=== PATIENT | female | born 1990 | race Caucasian/White ===

== ENCOUNTER 2017-07-24 05:54 | Inpatient (IN) | payer MEDICAID ==
[~2017-07-24] VITALS: Ht 177.8 cm; Wt 77.1 kg
[2017-07-24] VITALS (48 sets, daily range): BP systolic 54–136; BP diastolic 33–93; PULSE 55–123; RESP 16–20; TEMP 97.8–99.1; O2SAT 100
[2017-07-24] MEDS ORDERED: Prenatal Vitamin PO (06:13)
[2017-07-24] MEDS ORDERED: NS 1000 ML IV PRN (06:15)
[2017-07-24] MEDS ORDERED: LACTATED RINGER'S 1000 ML IV SCH (06:15)
[2017-07-24] MEDS ORDERED: LACTATED RINGER'S 1000 ML BOLUS IV PRN (06:15)
[2017-07-24] MEDS ORDERED: NS 500 ML BOLUS IV PRN (06:15)
[2017-07-24] MEDS ORDERED: OXYTOCIN 30 UNITS/NS 500ML PREMIX IV PRN (06:15)
[2017-07-24] MEDS ORDERED: LIDOCAINE HCL 1% 50 ML VIAL INFIL PRN (06:30)
[2017-07-24] MEDS ORDERED: ONDANSETRON HCL 4 MG/2 ML VIAL IV PUSH PRN (06:30)
[2017-07-24] MEDS ORDERED: LIDOCAINE HCL 1% 50 ML VIAL I-DERMAL PRN (06:30)
[2017-07-24] MEDS ORDERED: CITRIC ACID-SODIUM CITRATE LIQ 30 ML UDC PO SCH (06:30)
[2017-07-24] MEDS ORDERED: MINERAL OIL 10 ML VIAL TOPICAL PRN (06:30)
[2017-07-24] MEDS ORDERED: OXYTOCIN 30 UNITS 500ML PREMIX IV ONE (06:30)
[2017-07-24 06:55] LABS: BASOPHIL # 0.1 TH/MM3 (0-0.2); BASOPHIL % 0.6 % (0.0-2.0); EOSINOPHIL # 0.1 TH/MM3 (0-0.4); HEMATOCRIT 38.9 % (35.0-46.0); HEMOGLOBIN 13.1 GM/DL (11.6-15.3); LYMPH % 17.4 % (9.0-44.0); LYMPHOCYTE # 2.1 TH/MM3 (1.0-4.8); MEAN CELL VOLUME 87.8 FL (80.0-100.0); MEAN CORPUSCULAR HEMOGLOBIN 29.6 PG (27.0-34.0); MEAN CORPUSCULAR HGB CONC 33.8 % (32.0-36.0); MEAN PLATELET VOLUME 9.4 FL (7.0-11.0); MONO % 7.4 % (0.0-8.0); MONOCYTE # 0.9 TH/MM3 (0-0.9); NEUT % 73.6 % (16.0-70.0); PLATELET COUNT 256 TH/MM3 (150-450); RED BLOOD COUNT 4.43 MIL/MM3 (4.00-5.30); RED CELL DISTRIBUTION WIDTH 13.4 % (11.6-17.2); WHITE BLOOD COUNT 12.2 TH/MM3 (4.0-11.0)
[2017-07-24 07:08] LABS: BILIRUBIN, URINE NEG (NEG); BLOOD, URINE NEG (NEG); GLUCOSE,URINE NEG (NEG); KETONE, URINE NEG (NEG); MUCUS URINE FEW /lpf (OCC); NITRITE,URINE NEG (NEG); PH, URINE 6.5 (5.0-8.5); SQUAMOUS EPITHELIAL CELL URINE 8 /hpf (0-5); URINE COLOR YELLOW (YELLW/STRAW); URINE LEUKOCYTE ESTERASE TRACE (NEG)
--- NOTE | 2017-07-24 08:41 | HHI.HP ---
HPI Chief Complaint iol at term Travel History International Travel<30 Days: No Contact w/Intl Traveler<30Days: No Known Affected Area: No History of Present Illness HPI 27 yo G1 with iup at 39w2d by first trimester u/s her for iol with favorable ferguson score. She has a 4 cm left anterior fibroid. She had foreign travel prior to and had neg zika testing. Good FM, Irreg ctx, no vb/lof. Weeks Gestation: 39 Para: 0 : 1 History Past Medical History Medical History: Denies Significant Hx Obstetric History Obstetric History G1 current Past Surgical History Narrative Surgical Removal of ingrown nail Coggon teeth extraction Family History Family History: Negative Social History Alcohol Use: No Tobacco Use: No Substance Abuse: No Allergies-Medications (Allergen,Severity, Reaction): Coded Allergies: vancomycin (Verified Allergy, Unknown, Hives, 07/24/17) Home Meds Reported Medications [ Vitamin] No Conflict Check, 1 TAB PO DAILY 07/24/17 Review of Systems General / Constitutional: No: Fever, Weight Gain, Chills, Other Eyes: No: Diploplia, Blurred Vision, Visual changes, Pain, Photophobia HENT: No: Headaches, Vertigo, Lightheadedness Cardiovascular: No: Irregular Rhythm, Chest Pain or Discomfort, Palpitations, Tachycardia, Syncope, Varicosities, Edema, Cyanosis Respiratory: No: Cough, Short of Breath, Other Gastrointestinal: No: Nausea, Vomiting, Diarrhea Genitourinary: No: Decreased Urinary Output, Oliguria Musculoskeletal: No: Limited ROM, Weakness, Cramping, Edema, Pain Skin: No Rash, No Itching, No Dryness, No Lumps, No Change in Pigmentation, No Change in Nails, No Alopecia, No Lesions Neurologic: No: Weakness, Dizziness, Syncope, Focal Abnormalities, Coordination Problem, Headache, Slurred Speech, Seizures Psychiatric: No: Depression, Suicidal Ideations, Homicidal Ideation Endocrine: No: Heat Intolerance, Cold Intolerance, Polydipsia, Polyuria, Other Physical Exam Vital Signs Date Time Temp Pulse Resp B/P (MAP) Pulse Ox O2 Delivery O2 Flow Rate FiO2 07/24/17 07:30 93 123/84 (97) 07/24/17 07:16 96 123/80 (94) 07/24/17 07:16 99.1 18 5/1/18 06:30 97.8 18 07/24/17 06:24 84 120/80 (93) Narrative GENERAL: Well-nourished, well-developed patient. SKIN: Warm and dry. HEAD: Normocephalic and atraumatic. EYES: No scleral icterus. No injection or drainage. ENT: No nasal drainage noted. Mucous membranes pink. Airway patent. NECK: Supple, trachea midline. No JVD. CARDIOVASCULAR: Regular rate and rhythm without murmurs, gallops, or rubs. RESPIRATORY: Breath sounds equal bilaterally. No accessory muscle use. ABDOMEN/GI: Abdomen soft, non-tender, bowel sounds present, no rebound, no guarding Gravid [id number] size GENITOURINARY: External Genitalia: intact and normal in appearance BUS glands: [-] Cervix:3/70/-2, Arom clear Presentation: ceph Membranes:arom Uterine Contractions: [-] FHT's: Category:I Decels: [-] EXTREMITIES: No cyanosis or edema. BACK: Nontender without obvious deformity. No CVA tenderness. NEUROLOGICAL: Awake and alert. Motor and sensory grossly within normal limits. Five out of 5 muscle strength in all muscle groups. Normal speech. Caprini VTE Risk Assessment Caprini VTE Risk Assessment: No/Low Risk (score <= 1) Caprini Risk Assessment Model Point Value = 1 Point Value = 2 Point Value = 3 Point Value = 5 Age 41-60 Minor surgery BMI > 25 kg/m2 Swollen legs Varicose veins or History of unexplained or recurrent spontaneous Oral contraceptives or hormone replacement Sepsis (< 1 month) Serious lung disease, including pneumonia (< 1 month) Abnormal pulmonary function Acute myocardial infarction Congestive heart failure (< 1 month) History of inflammatory bowel disease Medical patient at bed rest Age 61-74 Arthroscopic surgery Major open surgery (> 45 min) Laparoscopic surgery (> 45 min) Malignancy Confined to bed (> 72 hours) Immobilizing plaster cast Central venous access Age >= 75 History of VTE Family history of VTE Factor V Leiden Prothrombin [id number] Lupus anticoagulant Anticardiolipin antibodies Elevated serum homocysteine Heparin-induced thrombocytopenia Other congenital or acquired thrombophilia Stroke (< 1 month) Elective arthroplasty Hip, pelvis, or leg fracture Acute spinal cord injury (< 1 month) Prophylaxis Regimen Total Risk Factor Score Risk Level Prophylaxis Regimen 0-1 Low Early ambulation 2 Moderate Order ONE of the following: *Sequential Compression Device (SCD) *Heparin 5000 units SQ BID 3-4 Higher Order ONE of the following medications: *Heparin 5000 units SQ TID *Enoxaparin/Lovenox 40 mg SQ daily (WT < 150 kg, CrCl > 30 mL/min) *Enoxaparin/Lovenox 30 mg SQ daily (WT < 150 kg, CrCl > 10-29 mL/min) *Enoxaparin/Lovenox 30 mg SQ BID (WT < 150 kg, CrCl > 30 mL/min) AND/OR *Sequential Compression Device (SCD) 5 or more Highest Order ONE of the following medications: *Heparin 5000 units SQ TID (Preferred with Epidurals) *Enoxaparin/Lovenox 40 mg SQ daily (WT < 150 kg, CrCl > 30 mL/min) *Enoxaparin/Lovenox 30 mg SQ daily (WT < 150 kg, CrCl > 10-29 mL/min) *Enoxaparin/Lovenox 30 mg SQ BID (WT < 150 kg, CrCl > 30 mL/min) AND *Sequential Compression Device (SCD) Data Data Vital Signs Reviewed: Yes Orders Orders Lactated Ringer's 1000 Ml Inj (Lr 1000 M (07/24/17 06:15) Lactated Ringer's 1000 Ml Inj (Lr 1000 M (07/24/17 06:15) Sodium Chlorid 0.9% 500 Ml Inj (Ns 500 M (07/24/17 06:15) Sodium Chlor 0.9% 1000 Ml Inj (Ns 1000 M (07/24/17 06:15) Oxytocin 30 Units-500ml Premix (Pitocin (07/24/17 06:15) Lidocaine 1% Inj (50 Ml) (Xylocaine 1% I (07/24/17 06:30) Citric Acid-Sodium Citrate Liq (Bicitra (07/24/17 06:30) Ondansetron Inj (Zofran Inj) (07/24/17 06:30) Fentanyl Inj (Fentanyl Inj) (07/24/17 06:30) Fentanyl Inj (Fentanyl Inj) (07/24/17 06:30) Oxytocin 30 Units-500ml Premix (Pitocin (07/24/17 06:30) Lidocaine 1% Inj (50 Ml) (Xylocaine 1% I (07/24/17 06:30) Light Mineral Oil (Muri-Lube Oil) (07/24/17 06:30) ^ Non Stress Test (07/24/17 06:29) Response To Medication .Post New Med Administration, Reaction (07/24/17 06:29) ^ Discontinue Medication (07/24/17 06:29) Admit To Inpatient (07/24/17 ) Vital Signs (Adult) .Per protocol (07/24/17 06:30) Heart (07/24/17 06:30) Amnioinfusion (07/24/17 06:30) Urinary Catheter Management .ONCE (07/24/17 06:30) Complete Blood Count With Diff (07/24/17 06:30) Hold Clot (07/24/17 06:30) Abo/Rh Blood Type (07/24/17 06:30) Urinalysis - C+S If Indicated (07/24/17 06:30) Ob/Psych Drug Screen, Urine (07/24/17 06:30) Resp Oxygen Non Rebreathe Mask (07/24/17 ) ^ Epidural / Intrathecal Infus (07/24/17 06:30) Specimen To Be Collected PRN (07/24/17 06:30) Specimen To Be Collected PRN (07/24/17 06:30) Diet Clear Liquid (07/24/17 Breakfast) Group B Strep: Negative Labs Laboratory Tests Test 07/24/17 06:15 07/24/17 06:20 Urine Color YELLOW Urine Turbidity HAZY Urine pH 6.5 Urine Specific [place] 1.021 Urine Protein TRACE Urine Glucose (UA) NEG Urine Ketones NEG Urine Occult Blood NEG Urine Nitrite NEG Urine Bilirubin NEG Urine Urobilinogen LESS THAN 2.0 Urine Leukocyte Esterase TRACE Urine RBC 2 Urine WBC 1 Urine Squamous Epithelial Cells 8 Urine Mucus FEW Microscopic Urinalysis Comment CULT NOT INDICATED Urine Opiates Screen NEG Urine Barbiturates Screen NEG Urine Amphetamines Screen NEG Urine Benzodiazepines Screen NEG Urine Cocaine Screen NEG Urine Cannabinoids Screen NEG White Blood Count 12.2 Red Blood Count 4.43 Hemoglobin 13.1 Hematocrit 38.9 Mean Corpuscular Volume 87.8 Mean Corpuscular Hemoglobin 29.6 Mean Corpuscular Hemoglobin Concent 33.8 Red Cell Distribution Width 13.4 Platelet Count 256 Mean Platelet Volume 9.4 Neutrophils (%) (Auto) 73.6 Lymphocytes (%) (Auto) 17.4 Monocytes (%) (Auto) 7.4 Eosinophils (%) (Auto) 1.0 Basophils (%) (Auto) 0.6 Neutrophils # (Auto) 9.0 Lymphocytes # (Auto) 2.1 Monocytes # (Auto) 0.9 Eosinophils # (Auto) 0.1 Basophils # (Auto) 0.1 CBC Comment DIFF FINAL Differential Comment Assessment/Plan Problem List: (1) Fibroid, uterine ICD Codes: D25.9 - Leiomyoma of uterus, unspecified (2) Labor and delivery indication for care or intervention ICD Codes: O75.9 - Complication of labor and delivery, unspecified Assessment and Plan 27yo G1 with ip at 39w2d her for iol 1) IOL - AROM and pitocin. Epidural if desired. Anticipate 2) GBS neg 3) Left ant 4 cm fibroid- should not affect descent 4) Fetus- female, "One[place]" approx 7.5lb Discharge Planning PPD 2 Chantell Javier MD July 24, 2017 08:41
[2017-07-24] MEDS ORDERED: fentaNYL 2MCG-BUPIV 0.125% INJ 100 ML ONE (14:57)
[2017-07-24] MEDS ORDERED: ePHEDrine/NS 25 MG/5 ML SYRINGE ONE (14:57)
[2017-07-24] MEDS ORDERED: LIDOCAINE 2%/EPINEPHrine PF 1:200,000 20ML SDV ONE (14:59)
[2017-07-24] MEDS ORDERED: LIDOCAINE HCL 1% PF 30 ML VIAL ONE (15:00)
[2017-07-24] MEDS ORDERED: fentaNYL 2MCG-BUPIV 0.125% 100 ML EPIDURAL PRN (16:15)
[2017-07-24] MEDS ORDERED: NO SYSTEM NARCOTICS PRN (16:15)
[2017-07-24] MEDS ORDERED: ePHEDrine/NS 25 MG/5 ML SYRINGE IV PUSH PRN (16:15)
[2017-07-24] MEDS ORDERED: DO NOT ADMINISTER ANTICOAGULANTS PRN (16:15)
--- NOTE | 2017-07-24 20:01 | PD.OB.DELI ---
Weeks gestation: 39 Pt started active labor?: Yes Medical induction of labor?: No Artificial rupture of membrane: Yes Anesthesia: Epidural Episiotomy: None Vaginal Delivery: Normal Presentation: Occiput anterior Nuchal Cord: None Delayed cord clamping (45 sec): Yes Shoulder Dystocia: Suprapubic pressure given, Rosalie maneuver done, Other ( compound left arm. Anterior arm right arm. Head delivered, gentle downward traction with no descent, Rosalie and suprapubic emplyed, Delivery of posterior shoulder then anterior shoulder. Under 30 seconds.) Delivery date: July 24, 2017 Delivery time: 19:33 One Minute : 7 Five Minute : 9 Weight: 3700g Placenta: Spontaneous delivery, Intact, 3 vessel cord Laceration: Vaginal laceration (Bilateral labial laceration) Estimated blood loss: 400ml Additional Information small 1.5cm left vaginal hematoma, observed and non-expanding. Alessia-urethral edema, non-obstructing. Will need straight cath if unable to void. Ice pack to perineum. Chantell Javier MD July 24, 2017 20:01
[2017-07-24] MEDS ORDERED: ZOLPIDEM TARTRATE 5 MG TAB PO PRN (20:15)
[2017-07-24] MEDS ORDERED: ACETAMINOPHEN 325 MG TAB PO PRN (20:15)
[2017-07-24] MEDS ORDERED: OXYTOCIN 30 UNITS-500ML PREMIX 500 ML IV SCH (20:15)
[2017-07-24] MEDS ORDERED: ONDANSETRON ODT 4 MG TAB PO PRN (20:15)
[2017-07-24] MEDS ORDERED: SODIUM CHLORIDE 0.9% FLUSH 10 ML FLUSH IV FLUSH PRN (20:15)
[2017-07-24] MEDS ORDERED: BENZOCAINE 20% TOPICAL SPRAY 60 ML CAN TOPICAL PRN (20:15)
[2017-07-24] MEDS ORDERED: DOCUSATE SODIUM 50 MG/SENNA 8.6 MG TAB PO PRN (20:15)
[2017-07-24] MEDS ORDERED: IBUPROFEN 800 MG TAB PO PRN (20:15)
[2017-07-24] MEDS ORDERED: ALUMINUM/MAGNESIUM/SIMETH 30 ML CUP PO PRN (20:15)
[2017-07-24] MEDS ORDERED: SODIUM CHLORIDE 0.9% FLUSH 10 ML FLUSH IV FLUSH SCH (21:00)
[2017-07-24] MEDS: WITCH HAZEL 50%/GLYCERIN 12.5% 40 PAD JAR TOPICAL PRN (21:01)
[2017-07-25] MEDS ORDERED: IBUP-232 PO (07:18)
--- NOTE | 2017-07-25 07:18 | HHI.DCPOC ---
Discharge Care Plan Diagnosis: (1) Normal vaginal delivery (2) Fibroid, uterine Your Health Problems Are: Vaginal delivery Report Symptoms to Your Doctor -Temperature above 100.5 degrees -Redness, of incision or excessive or foul smelling drainage -Unusual pain or calf pain -Increased vaginal bleeding -Painful or difficulty urinating -Feelings of extreme sadness or anxiety after 2 weeks Goals to Promote Your Health * To prevent worsening of your condition and complications * To maintain your health at the optimal level Directions to Meet Your Goals Take your medications as prescribed Follow your dietary instruction Follow activity as directed Ensure plenty of rest for recovery Drink fluids for hydration Keep your appointments as scheduled Take your immunizations and boosters as scheduled If your symptoms worsen call your PCP, if no PCP go to Urgent Care Center or Emergency Room Smoking is Dangerous to Your Health. Avoid second hand smoke Call the 24-hour crisis hotline for domestic abuse at Lazaro Beal MD July 25, 2017 07:18
--- NOTE | 2017-07-25 08:21 | HHI.OB ---
Subjective Post Day: 1 Remarks Patient is doing well, no complaints, vaginal bleeding less than menses, pain controlled Objective Vitals/I&O Vital Signs Date Time Temp Pulse Resp B/P (MAP) Pulse Ox O2 Delivery O2 Flow Rate FiO2 07/24/17 21:35 98.1 97 18 103/65 (78) 07/24/17 20:45 18 07/24/17 20:45 102 122/63 (82) 07/24/17 20:28 16 07/24/17 20:16 102 107/66 (80) 07/24/17 20:13 18 07/24/17 20:00 96 119/69 (86) 07/24/17 19:59 98.5 18 07/24/17 19:45 100 117/56 (76) 07/24/17 18:45 98 114/65 (81) 07/24/17 17:30 75 109/71 (84) 07/24/17 17:16 73 102/60 (74) 07/24/17 17:00 71 106/59 (75) 07/24/17 16:58 20 07/24/17 16:30 77 97/54 (68) 07/24/17 16:25 80 18 07/24/17 16:20 77 07/24/17 16:15 77 108/58 (75) 07/24/17 16:15 69 07/24/17 16:10 74 07/24/17 16:05 89 07/24/17 16:00 79 07/24/17 16:00 95/71 (79) 07/24/17 16:00 87 07/24/17 15:50 75 07/24/17 15:45 107/62 (77) 100 07/24/17 15:45 81 07/24/17 15:43 78 108/66 (80) 07/24/17 15:40 114/77 (89) 100 07/24/17 15:40 90 07/24/17 15:38 72 110/62 (78) 07/24/17 15:35 109/61 (77) 100 07/24/17 15:35 78 07/24/17 15:30 82 07/24/17 15:30 107/62 (77) 100 07/24/17 15:25 113/65 (81) 100 07/24/17 15:25 97 5/1/18 15:20 118/70 (86) 100 07/24/17 15:20 95 07/24/17 15:15 118/69 (85) 100 07/24/17 15:15 91 07/24/17 15:10 90 136/93 (107) 07/24/17 15:00 85 119/77 (91) 07/24/17 14:07 98.2 07/24/17 14:01 82 122/70 (87) 07/24/17 13:30 73 114/72 (86) 07/24/17 13:00 69 106/67 (80) 07/24/17 12:00 83 118/73 (88) 07/24/17 11:40 101 115/88 (97) 07/24/17 11:31 55 54/33 (40) 07/24/17 11:00 86 113/71 (85) 07/24/17 10:30 84 118/67 (84) 07/24/17 10:00 94 110/77 (88) 07/24/17 10:00 99.1 07/24/17 09:03 123 Objective Remarks GENERAL: Well-nourished, well-developed patient. CARDIOVASCULAR: Regular rate and rhythm without murmurs, gallops, or rubs. RESPIRATORY: Breath sounds equal bilaterally. No accessory muscle use. ABDOMEN/GI: Abdomen soft, non-tender. Fundus: Firm, non-tender at umbilicus. GENITOURINARY: Light to moderate bleeding. EXTREMITIES: No cyanosis or edema, non-tender, without signs of DVT. Medications and IVs Current Medications Medications (Trade) Dose Ordered Sig/Mihir Route Start Time Stop Time Status Last Admin (NS Flush) 2 ml BID IV FLUSH 07/24/17 21:00 (NS Flush) 2 ml UNSCH PRN IV FLUSH 07/24/17 20:15 (Tylenol) 650 mg Q4H PRN PO 07/24/17 20:15 07/25/17 07:16 (Motrin) 800 mg Q8H PRN PO 07/24/17 20:15 (Americaine 20% Top Spr) 1 spray Q4H PRN TOPICAL 07/24/17 20:15 07/24/17 21:01 (Tucks Pads) 1 applic QID PRN TOPICAL 07/24/17 20:15 07/24/17 21:01 (Alessia-Colace) 2 tab Q12H PRN PO 07/24/17 20:15 (Ambien) 5 mg HS PRN PO 07/24/17 20:15 (M-M-R Ii Inj) 0.5 ml ONCE ONCE SQ 07/25/17 16:00 07/25/17 16:01 (Boostrix Inj) 0.5 ml ONCE ONCE IM 07/25/17 16:00 07/25/17 16:01 (Mag-Al Plus Susp Liq) 15 ml Q8H PRN PO 07/24/17 20:15 (Zofran Odt) 4 mg Q6H PRN PO 07/24/17 20:15 Assessment/Plan Problem List: (1) Fibroid, uterine ICD Codes: D25.9 - Leiomyoma of uterus, unspecified (2) Labor and delivery indication for care or intervention ICD Codes: O75.9 - Complication of labor and delivery, unspecified Assessment and Plan 27yo s/p at 39w2d, delivery c/b dystocia and small non expanding left vaginal hematoma 1) PPD #1: AF, VSS, continue routine care, anticipate d/c home tomorrow, discussed precautions, expectations and follow-up. 2) Female "Lazaro Palma MD July 25, 2017 08:21
[2017-07-25] MEDS ORDERED: DIPHTH/TETANUS/ACEL PERTUSSIS (BOOSTER) 0.5 ML VIAL/PFS IM ONE (16:00)
[2017-07-25] MEDS ORDERED: MEASLES, MUMPS, RUBELLA VACCINE 0.5 ML VIAL SQ ONE (16:00)
[2017-07-25 20:05] VITALS: BP 106/69; PULSE 72; RESP 18; TEMP 98; O2SAT 97
[2017-07-26] MEDS: WITCH HAZEL 50%/GLYCERIN 12.5% 40 PAD JAR TOPICAL PRN (12:44)
--- NOTE | 2017-07-26 12:52 | HHI.OB ---
Subjective Post Day: 2 Remarks doing well PPD 2 infant on bili lights mom using double electric pump no pain, no depression or anxiety Objective Vitals/I&O Vital Signs Date Time Temp Pulse Resp B/P (MAP) Pulse Ox O2 Delivery O2 Flow Rate FiO2 07/25/17 20:05 72 18 106/69 (81) 97 07/25/17 20:05 98.0 Objective Remarks GENERAL: Well-nourished, well-developed patient. CARDIOVASCULAR: Regular rate and rhythm without murmurs, gallops, or rubs. RESPIRATORY: Breath sounds equal bilaterally. No accessory muscle use. ABDOMEN/GI: Abdomen soft, non-tender. Fundus: Firm, non-tender at umbilicus. GENITOURINARY: Light to moderate bleeding. EXTREMITIES: No cyanosis or edema, non-tender, without signs of DVT. Medications and IVs Current Medications Medications (Trade) Dose Ordered Sig/Mihir Route Start Time Stop Time Status Last Admin (NS Flush) 2 ml BID IV FLUSH 07/24/17 21:00 (NS Flush) 2 ml UNSCH PRN IV FLUSH 07/24/17 20:15 (Tylenol) 650 mg Q4H PRN PO 07/24/17 20:15 07/25/17 07:16 (Motrin) 800 mg Q8H PRN PO 07/24/17 20:15 (Americaine 20% Top Spr) 1 spray Q4H PRN TOPICAL 07/24/17 20:15 07/24/17 21:01 (Tucks Pads) 1 applic QID PRN TOPICAL 07/24/17 20:15 07/26/17 12:44 (Alessia-Colace) 2 tab Q12H PRN PO 07/24/17 20:15 (Ambien) 5 mg HS PRN PO 07/24/17 20:15 (Mag-Al Plus Susp Liq) 15 ml Q8H PRN PO 07/24/17 20:15 (Zofran Odt) 4 mg Q6H PRN PO 07/24/17 20:15 Assessment/Plan Problem List: (1) Fibroid, uterine ICD Codes: D25.9 - Leiomyoma of uterus, unspecified (2) Labor and delivery indication for care or intervention ICD Codes: O75.9 - Complication of labor and delivery, unspecified Assessment and Plan 27yo s/p at 39w2d, delivery c/b dystocia and small non expanding left vaginal hematoma 1) PPD #1: AF, VSS, continue routine care, anticipate d/c home tomorrow, discussed precautions, expectations and follow-up. 2) Female "[place] Discharge Planning discharge mom from [facility] and she can stay with either as close stay or up in peds rto 2 weeks Maya Nicole MD July 26, 2017 12:52
== END 2017-07-26 13:35 | disposition home or self-care (01) | DRG 775 ==
LOC: H2EB 05:54 → H1EA 21:14
PROVIDERS: ADMIT Obstetrics & Gynecology; ATTEND Obstetrics & Gynecology
PROC: 10E0XZZ Delivery of Products of Conception, External Approach (ICD-10-PCS; principal; 2017-07-24)
PROC: 10907ZC Drainage of Amniotic Fluid, Therapeutic from Products of Conception, Via Natural or Artificial Opening (ICD-10-PCS; 2017-07-24)
PROC: 0HQ9XZZ Repair Perineum Skin, External Approach (ICD-10-PCS; 2017-07-24)
PROC: 00HU33Z Insertion of Infusion Device into Spinal Canal, Percutaneous Approach (ICD-10-PCS; 2017-07-24)
PROC: 3E0R3BZ Introduction of Anesthetic Agent into Spinal Canal, Percutaneous Approach (ICD-10-PCS; 2017-07-24)
DX: O70.0 First degree perineal laceration during delivery (principal); O34.13 Maternal care for benign tumor of corpus uteri, third trimester; N89.8 Other specified noninflammatory disorders of vagina; O66.0 Obstructed labor due to shoulder dystocia; Z37.0 Single live birth; Z3A.39 39 weeks gestation of pregnancy; Z23 Encounter for immunization
CPT/HCPCS: 59025; 80307; 81001; 86900; 86901; 90715; G0481; J2405; J2590; J3010; J7120